=== PATIENT | female | born 1990 | race Hispanic/Latino ===

== ENCOUNTER → 2025-02-26 10:34 | Outpatient (REF) | payer BC, SELFPAY | LOC: RAD 10:34 | PROVIDERS: ATTENDING PHYSICIAN Otolaryngology; FAMILY PHYSICIAN Family Medicine | DX: J32.0 Chronic maxillary sinusitis (principal); R43.0 Anosmia; J34.2 Deviated nasal septum | CPT/HCPCS: 70486 ==